=== PATIENT | male | born 1980 | race Caucasian/White ===

== ENCOUNTER 2021-07-13 13:54 | Emergency (ER) | payer OTHER ==
[~2021-07-13] VITALS: Ht 177.8 cm; Wt 80.0 kg
[2021-07-13 16:26] VITALS: BP 125/80
== END 2021-07-13 16:32 | disposition home or self-care (01) ==
LOC: ER 13:54
DX: R55 Syncope and collapse (principal); F15.10 Other stimulant abuse, uncomplicated; I10 Essential (primary) hypertension; T40.411A Poisoning by fentanyl or fentanyl analogs, accidental (unintentional), initial encounter; Y92.9 Unspecified place or not applicable
CPT/HCPCS: 99283